=== PATIENT | male | born 1940 | race Caucasian/White ===

== ENCOUNTER 2018-09-03 12:14 | Outpatient (CLI) | payer MEDICARE ==
--- NOTE | 2018-09-03 13:42 | RAD ---
Double contrast esophagram Indication history of dysphagia TECHNIQUE: Thin barium, thick barium and effervescent crystals were utilized for a Double contrast es ophagram. Fluoroscopic time: 0.8 minutes Finding: No intraluminal mass or stricture is identified. No gross mucosal abnormality is evident. During the second thick barium oral contrast demonstration, the patient had an episode of aspiration with barium contrast seen within the mainstem trachea. This aspiration event did elicit a cough response. The examination was terminated following identification of the aspiration event. IMPRESSION: 1. No intraluminal mass or stricture identified. The mucosa appears within normal limits. 2. Tracheal aspiration with thick barium liquids. Recommend speech therapy consultation for further e valuation.
== END 2018-09-03 12:15 | disposition home or self-care (01) ==
LOC: RAD 12:14
PROVIDERS: ATTEND Physician Assistant Medical
DX: K59.00 Constipation, unspecified (principal); R13.10 Dysphagia, unspecified
CPT/HCPCS: 74220

== ENCOUNTER 2018-09-22 10:00 | Outpatient (CLI) | payer MEDICARE ==
--- NOTE | 2018-09-23 16:29 | RAD ---
MODIFIED BARIUM SWALLOW: 09/23/18 INDICATION: Dysphagia following nontraumatic subarachnoid hemorrhage; dysphagia oropharyngeal phase; feeding diff iculties, abnormal barium swallow. FINDINGS: With ingestion of varying consistencies of barium contrast, there is evidence of laryngeal penetratio n. No tracheal aspiration is identified. Correlate with speech pathology report for further details. IMPRESSION: Laryngeal penetration. POS: [facility]
== END 2018-09-22 10:01 | disposition home or self-care (01) ==
PROVIDERS: ATTEND Physician Assistant Medical
DX: I69.191 Dysphagia following nontraumatic intracerebral hemorrhage (principal); R13.12 Dysphagia, oropharyngeal phase; R63.3 Feeding difficulties
CPT/HCPCS: 74230